=== PATIENT | male | born 1970 | race Caucasian/White ===

== ENCOUNTER 2019-10-30 14:30 | Emergency (ER) | payer SELFPAY ==
[~2019-10-30] VITALS: Ht 188 cm; Wt 95.7 kg
[2019-10-30 14:48] VITALS: BP 173/106
[2019-10-30] MEDS ORDERED: PENI500T2 PO (15:26)
[2019-10-30] MEDS ORDERED: HYDROcodone/acetaminophen 5mg/325mg tablet PO ONE (15:30)
== END 2019-10-30 15:39 | disposition home or self-care (01) ==
LOC: ER 14:31
DX: K08.89 Other specified disorders of teeth and supporting structures (principal); Z79.899 Other long term (current) drug therapy
CPT/HCPCS: 99283